=== PATIENT | male | born 1965 | race African-American/Black ===

== ENCOUNTER 2021-10-12 17:23 | Emergency (ER) | payer OTHER ==
[~2021-10-12 17:23] MED LIST: COZAAR50 MG PO
== END 2021-10-12 20:48 | disposition home or self-care (01) ==
LOC: FER 17:23
DX: S61.531A Puncture wound without foreign body of right wrist, initial encounter (principal); F17.210 Nicotine dependence, cigarettes, uncomplicated; I10 Essential (primary) hypertension; W22.8XXA Striking against or struck by other objects, initial encounter; Y92.89 Other specified places as the place of occurrence of the external cause; Y99.0 Civilian activity done for income or pay
CPT/HCPCS: 73100